=== PATIENT | male | born 1955 ===

== ENCOUNTER 2023-04-11 05:54 | Day surgery (SDC) | payer MEDICARE, BC ==
[2023-04-11] MEDS ORDERED: Dextrose 5%-0.45% NaCl 1,000 ML IV SCH (06:00)
[2023-04-11] MEDS ORDERED: fentaNYL 100 MCG/2 ML SDV IV ONE ×3 (06:12→07:09)
[2023-04-11] MEDS ORDERED: fentaNYL 100 MCG/2 ML SDV ONE (06:12)
[2023-04-11] MEDS ORDERED: Midazolam 1 MG/ML 2 ML SDV ONE (06:12)
[2023-04-11] MEDS ORDERED: Midazolam 1 MG/ML 2 ML SDV IV ONE ×5 (06:12→07:16)
== END 2023-04-11 08:41 | disposition home or self-care (01) ==
LOC: DL.ENDO 05:54
PROVIDERS: ATTEND Internal Medicine Gastroenterology
DX: Z12.11 Encounter for screening for malignant neoplasm of colon (principal); K57.30 Diverticulosis of large intestine without perforation or abscess without bleeding; K64.8 Other hemorrhoids; I10 Essential (primary) hypertension; E78.5 Hyperlipidemia, unspecified; G47.30 Sleep apnea, unspecified; E66.01 Morbid (severe) obesity due to excess calories; Z68.29 Body mass index [BMI] 29.0-29.9, adult; Z98.890 Other specified postprocedural states
CPT/HCPCS: J2250; J3010; J7042